=== PATIENT | female | born 1985 | race Two or more races ===

== ENCOUNTER 2021-07-15 19:35 | Emergency (ER) | payer OTHER ==
[~2021-07-15] VITALS: Ht 162.6 cm; Wt 114.8 kg
--- NOTE | 2021-07-15 20:00 | NUR ---
PATIENT BIBS C/O RIGHT THIGH PAIN S/P GASTRIC SLEEVE SX ON THE . PATIENT CONNECTED TO BEDSIDE MONITOR, VITAL SIGNS WITHIN NORMAL LIMITS, DISCOMFROT AND PAIN EXPRESSED. PATIENT ON ROOM AIR, BREATHING EVEN AND UNLABORED, O2 SAT 98%. WILL CONTINUE TO MONITOR.
[2021-07-15 20:35] LABS: BASOPHILS # (AUTO) 0.1 K/uL (0.0-0.2); BASOPHILS % (AUTO) 1.2 % (0.0-2.0); HEMATOCRIT 40 % (33-45); HEMOGLOBIN 13.3 g/dL (11.5-14.8); LYMPHOCYTES # (AUTO) 1.2 K/uL (0.8-4.8); MEAN CORPUSCULAR HGB CONC 34 g/dl (31.0-36.0); MEAN CORPUSCULAR VOLUME 86 fL (82-100); MONOCYTES # (AUTO) 0.7 K/uL (0.1-1.30); MONOCYTES % (AUTO) 8.8 % (2.0-12.0); NEUTROPHILS # (AUTO) 6.1 K/uL (1.8-8.9); PLATELET COUNT (AUTO) 333 K/uL (150-450); WHITE BLOOD COUNT (AUTO) 8.3 K/uL (4.3-11.0)
--- NOTE | 2021-07-15 20:39 | NUR ---
US TECH AT PT'S BEDSIDE
[2021-07-15] MEDS ORDERED: IOHEXOL-350 100 ML VIAL IV ONE (21:09)
[2021-07-15] MEDS ORDERED: IV NS 0.9% 250 ML IV ONE (21:10)
--- NOTE | 2021-07-15 21:19 | NUR ---
PER DR. BUITRAGO HOLD CT CONTRAST FOR NOW. PT ALLERGIC TO SHELLFISH. RADIOLOGY AWARE
--- NOTE | 2021-07-15 21:30 | NUR ---
PER DR. BUITRAGO OKAY TO DO CTA W/ CONTRAST
[2021-07-15] MEDS ORDERED: CYCLOBENZAPRINE 10 MG TABLET ONE (21:33)
[2021-07-15] MEDS: CYCLOBENZAPRINE 10 MG TABLET PO ONE (21:41)
[2021-07-15 21:46] LABS: CARBON DIOXIDE 27 mmol/L (21-32); CHLORIDE 101 mmol/L (98-107); CREATININE 0.8 mg/dL (0.6-1.3); GLUCOSE 87 mg/dL (74-106); POTASSIUM 3.8 mmol/L (3.5-5.1); SODIUM SERUM 136 mmol/L (136-145); UREA NITROGEN, BLOOD 16 mg/dL (7-18)
--- NOTE | 2021-07-15 22:19 | NUR ---
PT RETURNED TO ER BED [address]
--- NOTE | 2021-07-15 23:23 | NUR ---
Patient discharged to home in stable condition. Written and verbal after care instructions given. Patient verbalizes understanding of instruction. Pt. ambulatory with a steady gait. IV removed. Catheter intact and site benign. Pressure and 4x4 applied to site. No bleeding noted.
[2021-07-15 23:24] VITALS: BP 120/61
== END 2021-07-15 23:23 | disposition home or self-care (01) ==
LOC: ER 19:41
DX: M79.604 Pain in right leg (principal); R06.00 Dyspnea, unspecified; Z91.013 Allergy to seafood; Z91.018 Allergy to other foods
CPT/HCPCS: 36415; 71275; 80048; 83880; 84484; 84702; 85025; 85378; 93005 ×2; 93970; 99285; J7050; Q9967